=== PATIENT | male | born 1965 | race Caucasian/White ===

== ENCOUNTER 2025-10-11 11:56 | Outpatient (AMB) | payer MEDICARE, SELFPAY ==
--- NOTE | 2025-10-11 12:08 | A.OFFVIS_ITS ---
Intake Visit Reasons: parkinsons DZ HPI Comments Details: The patient is a 60 year old male presenting for evaluation of his long-standing Parkinson's disease and more recent onset of dementia, with the goal of establishing local neurologic care. He is a right-handed individual who was d iagnosed with Parkinson's disease around age 28, with the initial symptom being a right-hand tremor. Approximately 15 years ago, he underwent deep brain stimulation (DBS) surgery due to severe tremor that was not well-controlled with medication. The DBS was initially very effective. He has bilateral batteries; one was replaced about two years ago and does not require regular charging, while the other requires charging with a Medtronic system every few days to prevent severe immobility. Cognitive issues became apparent approximately 2-3 years ago with the onset of significant visual and auditory hallucinations. While living independently, he had delusions of people in his condo and bugs on the floor, which led to him moving in with his family a year and a half ago. He has been treated with levamisole, Nuplazid, and clozapine, which has provided some improvement, though he still consistently experiences visual hallucinations. Additional symptoms include a history of kicking and shouting during sleep, excessive daytime sleepiness, and occasional problems with bladder control. His family reports his personality remains calm, but confusion is a prominent and ongoing issue. His neurologic care, including DBS management, has been at [place], but the family is seeking a local provider in [place] due to the difficulty of travel. Review of Systems Narrative Constitutional:? Complain of tiredness and fatigue HEENT:?No headache, vision changes, hearing loss, nasal congestion, sore throat. Cardiovascular:?No chest pain, palpitations, orthopnea, PND, or leg swelling. Respiratory:?No cough, shortness of breath, wheezing, or hemoptysis. Gastrointestinal:?No nausea, vomiting, abdominal pain, diarrhea, or constipation. Genitourinary:? Complain of mild incontinence. Musculoskeletal:?No joint pain, stiffness, weakness, or muscle aches. Neurological:? Complain of difficulty walking, confusion, memory problems, tremor. Psychiatric:? Complain of depression and hallucinations. Endocrine:?No heat/cold intolerance, polydipsia, polyuria, or hair/skin changes. Hematologic/Lymphatic:?No easy bruising, bleeding, or lymphadenopathy. Integumentary (Skin):?No rash, lesions, itching, or color changes. Allergic/Immunologic:?No seasonal allergies, hives, or recurrent infections. Sleep: Complain of difficulty sleeping. Physical Exam Neuro Other: Mental Status: He is alert and awake with normal spontaneity of speech fluency comprehension and somewhat flat affect. Cranial Nerves: CN II: Visual metcalf full to confrontation, visual acuity intact. CN III, IV, : Pupils equal, round, reactive to light and accommodation. Extraocular movements are normal. CN V: Facial sensation is normal. CN VII: Facial movements symmetrical. CN VIII: Hearing intact to bedside conversation is normal. CN IX, X: Palate elevates symmetrically. CN XI: Shoulder shrug and head turn symmetrical. CN XII: Tongue midline without atrophy or fasciculations. Motor: Bulk and tone normal in all extremities. No significant muscle weakness in arms and legs. No drift. Reflexes: Deep tendon reflexes 2+ and symmetric. Plantar response down-going bilaterally. Coordination: [id number] is okay. Gait and Station: Slow and cautious with decreased arm swing. Posture is slightly stooped. Extrapyramidal: Decreased facial expression blinking. Moderate generalized bradykinesia. Mild fine tremor in outstretched hands. No significant resting tremor. Speech: Soft speech with no significant tremor Assessment & Plan Assessment & Plan (1) Parkinson disease: Code(s): G20.A1 - Parkinson's disease without dyskinesia, without mention of fluctuations Category: Medical Qualifiers: Dyskinesia presence: without dyskinesia Fluctuating manifestations: without fluctuating manifestations Qualified Code(s): G20.A1 - Parkinson's disease without dyskinesia, without mention of fluctuations (2) Dementia with Lewy bodies: Code(s): G31.83 - Neurocognitive disorder with Lewy bodies; F02.80 - Dementia in other diseases classified elsewhere, unspecified severity, without behavioral disturbance, psychotic disturbance, mood disturbance, and anxiety Category: Medical Qualifiers: Dementia severity: moderate Dementia behavioral or psychological symptom: without behavioral, psychotic, or mood disturbance or anxiety Qualified Code(s): G31.83 - Neurocognitive disorder with Lewy bodies; F02.B0 - Dementia in other diseases classified elsewhere, moderate, without behavioral disturbance, psychotic disturbance, mood disturbance, and anxiety Plan Impression: 1. Longstanding diagnosis of Parkinson's disease that initially presented when he was about 28 years old with hand tremor, status post deep brain stimulation leads placement with good response. 2. Recent, during last 2-4 years, onset of cognitive difficulties, visual and auditory hallucinations, and REM sleep behavior disorder type of symptomatology suggestive of dementia with Lewy body disease Recommendations: As he was trying to transfer his care from [place] to this area, and because of complex nature of his overall situation, I have recommended to his sister who was also his healthcare proxy, that he should see Dr. Allen in [place]. I did discuss possibility of testing including skin biopsy for synuclein to confirmed the type of dementia. Otherwise treatment is symptomatic no specific treatment is available for this kind of dementia. Coding Level of Care Code New Pt Level 5 (52431) Diagnoses Parkinson's disease without dyskinesia or fluctuating manifestations G20.A1 Dyskinesia presence: without dyskinesia Fluctuating manifestations: without fluctuating manifestations Moderate Lewy body dementia without behavioral disturbance, psychotic disturbance, mood disturbance, or anxiety G31.83; F02.B0 Dementia severity: moderate Dementia behavioral or psychological symptom: without behavioral, psychotic, or mood disturbance or anxiety Time Spent (min) 60
--- OUTSIDE RECORDS SUMMARY | 2025-10-11 15:48 | XMS_ITS | Encounter Summary ---
Author Organization [facility] Address [address] [place] [address] Care Team Providers Care Guitar Repairer Name Role Phone Jewell Richter Primary Care Provider Encounter Details Date Type Department Care Team (Late st Contact Info) Description 12/06/2021 myChart Message [facility] [address] [place] [address] Tracey Pascal NP [address] [place], [place] [id number] Medication List Social History Tobacco Use Types Packs/Day Years Used Date Smoking Tobacco: Never Smokeless Tobacco: Never Comments:: Alcohol Use Standard Drinks/Week Comments No 0 (1 standard drink = 0.6 oz pur e alcohol) Sex and Gender Information Value Date Recorded Sex Assigned at Male 11/22/2022 9:15 AM EST Legal Sex Male 10:00 AM EDT Gender Identity Male 11/22/2022 9:15 AM EST Sexual Orientation Straight 11/22/2022 9: 15 AM EST documented as of this encounter Plan of Treatment Not on file documented as of this encounter Visit Diagnoses Not on filedocumented in this encounter Care Teams Guitar Repairer Relationship Specialty Start Date End Date Jewell Richter [address] [place] [address] PCP - General 09/17/21 documented as of this encounter
--- OUTSIDE RECORDS SUMMARY | 2025-10-11 15:48 | XMS_ITS | Clinical Summary ---
Author Organization [facility] Address [address] [place] [address] Phone Care Team Providers Care Chief Media Officer Name Role Phone Jewell Richter NP Primary Care Provider [phone] Medications bisacodyL (DULCOLAX) 5 mg EC tablet Take 2 tablets by mouth right before beginning bowel prep. See instructions provided by the office 2 tablet 4 Active polyethylene glycol (Golytely) 236-22.74-6.74 -5.86 gram solution Take 4L by mouth once for one dose. May substitue any PEG. Starting at 6PM the night before your procedure drink 1 8oz glasses at your own pace until you complete half of the gallon. Finish 2nd half of the gallon 5 hours before your procedure. 4000 mL 4 Active Medical History Medical History Date Comments Pseudocholinesterase deficiency Social History Tobacco Use Types Packs/Day Years Used Date Smoking Tobacco: Never Assessed Sex and Gender Information Value Date Recorded Sex Assigned at Not on file Legal Sex Male 9:07 PM EST Gender Identity Not on file Sexual Orientation Not on file Plan of Treatment Health Maintenance Due Date Last Done Comments Colorectal Cancer Screening: Colonoscopy 1964 DTaP,Tdap,and Td Vaccines (1 - Tdap) 1983 Pneumococcal Vaccine: 50+ Ye ars (1 of 1 - PCV) 2014 Zoster Vaccines (1 of 2) 2014 Cholesterol Screening (Lipid Panel) 11/21/2023 HIV Screening 11/21/2023 Hepatitis C Screening 11/21/2023 Medicare Annual Wellness Visit 11/21/2023 Social Influencers of Health Screening 11/21/2023 Depression Screening 10/27/2024 COVID-19 Vaccine (1 - 2024-2 6 season) 2025 Influenza Vaccine (#1) 2025 RSV Immunization Adult Patie nts (1 - 1-dose 75+ series) 2039 HIB Vaccines Aged Out No longer eligi ble based on patient's age to complete this topic HPV Vaccines Aged Out No longer eligi ble based on patient's age to complete this topic Hepatitis A Vaccines Aged Out No long er eligible based on patient's age to complete this topic Hepatitis B Vaccines Aged Out No long er eligible based on patient's age to complete this topic IPV Vaccines Aged Out No longer eligi ble based on patient's age to complete this topic MMR Vaccines Aged Out No longer eligi ble based on patient's age to complete this topic Meningococcal ACWY Vaccine Aged Out N o longer eligible based on patient's age to complete this topic Meningococcal B Vaccine Aged Out No l onger eligible based on patient's age to complete this topic RSV Immunization Patients Un florence 20 months Aged Out No longer eligible b ased on patient's age to complete this topic Varicella Vaccines Aged Out No longer eligible based on patient's age to complete this topic Insurance Care Teams Chief Media Officer Relationship Specialty Start Date End Date Jewell Richter NP [address] [place] [address] PCP - General Nurse Practitioner 09/13/24
--- OUTSIDE RECORDS SUMMARY | 2025-10-11 15:49 | XMS_ITS | Encounter Summary ---
Author Organization [facility] Address [address] [place] [phone] Care Team Providers Care Redye Hand Name Role Phone Jonathon Hurley MD Primary Care Provider [phone] Encounter Details Date Type Department Care Team (Late st Contact Info) Description 04/04/2015 Scanned Document [facility] [address] [facility] [place] [address] Panda Pink MD PhD [address] [place] [phone] Social History Tobacco Use Types Packs/Day Years Used Date Smoking Tobacco: Never Alcohol Use Standard Drinks/Week Comments Not Asked 0 (1 standard drink = 0.6 oz pur e alcohol) Sex and Gender Information Value Date Recorded Sex Assigned at Not on file Legal Sex Male 4:49 PM EDT Gender Identity Not on file Sexual Orientation Not on file documented as of this encounter Plan of Treatment Not on file documented as of this encounter Visit Diagnoses Not on filedocumented in this encounter Care Teams Redye Hand Relationship Specialty Start Date End Date Jonathon Hurley MD [address] [phone] PCP - General Internal Medicine 02/28/15 07/18/22 Jewell Richter NP Primary Care Provider Advanced Practice Nursing 07/19/22 documented as of this encounter
--- OUTSIDE RECORDS SUMMARY | 2025-10-11 15:49 | XMS_ITS | Encounter Summary ---
Author Organization [facility] Address [address] [place] [phone] Care Team Providers Care Nut And Bolt Assembler Name Role Phone Jonathon Hurley MD Primary Care Provider [phone] Encounter Details Date Type Department Care Team (Late st Contact Info) Description 02/21/2015 Scanned Document [facility] [address] [facility] [address] [facility] [place] [address] Padna Pink MD PhD [address] [place] [phone] Social History Tobacco Use Types Packs/Day Years [...] on filedocumented in this encounter Care Teams Nut And Bolt Assembler Relationship Specialty Start Date End Date Jonathon Hurley MD [address] [facility] [address] [address] PCP - General Internal Medicine 02/28/15 07/18/22 Jewell Richter NP Primary Care Provider Advanced Practice Nursing 07/19/22 documented as of this encounter
--- OUTSIDE RECORDS SUMMARY | 2025-10-11 15:49 | XMS_ITS | Clinical Summary ---
Author Organization [address] Address [address] [place] [phone] Phone Care Team Providers Care Application Internship Name Role Phone Unavailable Primary Care Provider Unavailabl e Allergies Active Allergy Reactions Criticality Noted Date Comments Entacapone 02/21/2015 Carbidopa-Levodopa 05/28/2017 Psychotic Disorder Medications CARBIDOPA/LEVODOPA (RYTARY ORAL) Take by mouth. 23.75/95 mg Take 4 capsules tid Active ergocalciferol (VITAMIN D2) 50,000 unit capsule Take by mouth once a week. Patient takes Vitamin 2000 IU Dailh Active multivitamin capsule Take 1 capsule by mouth daily. Active fish oil-omega-3 fatty acids 1,000 mg capsule Take 2 g by mouth daily. Active carbidopa-levodopa (PARCOPA) 25-100 mg per disintegrating tablet Take 1 tablet by mouth.. 1 po every 3 hours x 6-7 dose per day Active zolpidem (AMBIEN) 10 mg tablet Take 10 mg by mouth nightly as needed for Sleep.. Active cephALEXin (KEFLEX) 500 MG capsule Take 1 capsule (500 mg total) by mouth 2 (two) times daily.. 6 capsule 7 Active senna (SENOKOT) 8.6 mg tablet Take 1 tablet by mouth Every evening before dinner.. 30 tablet 7 Active Active Problems Problem Noted Date Diagnosed Date Parkinson's disease 03/02/2015 Social History Tobacco Use Types Packs/Day Years Used Date Smoking Tobacco: Never Smokeless Tobacco: Never Alcohol Use Standard Drinks/Week Comments No 0 (1 standard drink = 0.6 oz pur e alcohol) Sex and Gender Information Value Date Recorded Sex Assigned at Not on file Legal Sex Male 4:49 PM EDT Gender Identity Not on file Sexual Orientation Not on file Last Filed Vital Signs Vital Sign Reading Time Taken Comments Blood Pressure 128/82 06/25/2017 3:03 PM EDT Pulse 77 06/25/2017 3:03 PM EDT Temperature 36.4 C (97.6 F) 06/25/2017 3:03 PM EDT Respiratory Rate 23 06/10/2017 10:00 AM EDT Oxygen Saturation 96% 06/25/2017 3:03 PM EDT Inhaled Oxygen Concentration - - Weight 77.1 kg (170 lb) 06/25/2017 3:03 PM EDT Height 172.7 cm (5' 8 ) 06/25/2017 3:03 PM EDT Body Mass Index 25.85 06/25/2017 3:03 PM EDT Plan of Treatment Health Maintenance Due Date Last Done Comments HIV screening 1977 Hepatitis C screening 1982 Tetanus adult (Td q 10,TDAP once) 1984 Lipid disorder screening 2004 Colon cancer screening, Colonoscopy 2009 Pneumococcal Vaccine (50+ years) (1 of 1 - PCV) 2014 Shingles vaccine (Shingrix) (1 of 2 - Shingrix (RZV) 2 Dose Standard Series) 2014 Diabetes screening 06/04/2020 06/04/2017, 03/01/2015 Influenza vaccine 05/27/2025 Covid-19 vaccine series (1 - 2024- season) 2025 RSV Immunization (1 - 1-dose 75+ series) 2039 Meningococcal B Vaccine Aged Out No l onger eligible based on patient's age to complete this topic Meningococcal Vaccine Aged Out No jordy keturah eligible based on patient's age to complete this topic Medical Devices Implanted Type Area Journeyman Sheet Metal Worker Device Identifier Shelf Expiration Date Model / Serial / Lot Deep Brain Stimulator Deep Brain Stimulator Chest Description:bilateral Antenna 36in Neurostimulator - [id number] Implanted:Qty: 1 on 03/21/2015 by Panda Pink MD PhD at [address] [employer] 10/26/2019 [id number] / / [id number] Battery Acativa Rechrg [id number] - [id number] Implanted:06/10/20 17 by Panda Pink MD PhD at [address] (Quantity not on file) Other-implant Right: Chest MEDTRON[employer] (MEDT-ZZZZ) 11/09/2017 [id number] / [id number] 1H / [id number] 1H Battery Acativa Rechrg 05036 - [id number] Implanted:Qty: 1 on 03/21/2015 by Panda Pink MD PhD at [address] Vascular Left: Chest [employer]TRON[employer] (MEDT-ZZZZ) 12/24/2015 34010 / [id number] 7H / [id number] 7H 1x4 Medtronic Pocket Adaptor Kit Implanted:Qty: 1 on 03/21/2015 by Panda Pink MD PhD at [address] Left: Chest 10/23/2017 53313 / / [id number] Explanted Type Area Journeyman Sheet Metal Worker Device Identifier Shelf Expiration Date Model / Serial [place] [id number] - [id number] Implanted:03/21/20 15 by Panda Pink MD PhD at [address] (Quantity not on file) Explanted:Qty: 1 on 06/10/2017 by Panda Pink MD PhD at [address] Neuro Right: Chest [employer] 12/24/2015 14707 / [id number] / [id number] Procedures Procedure Name Priority Date/Time Associated Diagnosis Comments COMPREHENSIVE METABOLIC PANEL Routine 06/04/2017 3:23 PM EDT Parkinson's disease (HC Code) from Last 3 Months or Most Recently Relevant to Health Maintenance Results * (ABNORMAL) Comprehensive metabolic panel (06/04/2017 3:23 PM EDT) Sodium 142 135 - 145 mmol/L 06/04/2017 4:47 PM EDT [facility] Potassium 4.8 3.3 - 5.0 mmol/L 06/04/2017 4:47 PM EDT [facility] Chloride 103 96 - 106 mmol/L 06/04/2017 4:47 PM EDT [facility] CO2 28 22 - 30 mmol/L 06/04/2017 4:47 PM EDT [facility] Anion Gap 11 >7-<17 06/04/2017 4:47 PM EDT [facility] Glucose 93 70 - 100 mg/dL 06/04/2017 4:47 PM EDT [facility] BUN 21(H) 8 - 18 mg/dL 06/04/2017 4:47 PM EDT [facility] Creatinine 0.95 0.50 - 1.20 mg/dL 06/04/2017 4:47 PM EDT [facility] Calcium 9.5 8.8 - 10.2 mg/dL 06/04/2017 4:47 PM EDT [facility] BUN/Creatinine Ratio 22.1(H) 10.0 - 20.0 06/04/2017 4:47 PM EDT [facility] Total Protein 7.2 6.0 - 8.3 g/dL 06/04/2017 4:47 PM EDT [facility] Albumin 4.1 3.5 - 5.0 g/dL 06/04/2017 4:47 PM EDT [facility] Total Bilirubin 0.4 <1.20 mg/dL 06/04/2017 4:47 PM EDT [facility] Alkaline Phosphatase 65 30 - 130 U/L 06/04/2017 4:47 PM EDT [facility] Alanine Aminotransferase (ALT) 5 0 - 34 U/L 06/04/2017 4:47 PM EDT [facility] Aspartate Aminotransferase (AST) 22 0 - 34 U/L 06/04/2017 4:47 PM EDT [facility] Globulin 3.1 2.3 - 3.5 g/dL 06/04/2017 4:47 PM EDT [facility] A/G Ratio 1.3 1.0 - 2.2 06/04/2017 4:47 PM EDT [facility] AST/ALT Ratio 4.4 0.3 - 4.9 06/04/2017 4:47 PM EDT [facility] eGFR (Afr Amer) >60 >60 mL/min/1. 73m2 06/04/2017 4:47 PM EDT [facility] Comment: Values under 60mL/min/1.73m2 may indicate CKD if noted for more than 3 months. eGFR is only valid if creatinine is at steady state. eGFR (NON -Belarusian) >60 >60 mL/min/1. 73m2 06/04/2017 4:47 PM EDT [facility] Comment: Values under 60mL/min/1.73m2 may indicate CKD if noted for more than 3 months. eGFR is only valid if creatinine is at steady state. Blood specimen (specimen) Venipuncture / Unknown 06/04/2017 3:23 PM EDT 06/04/2017 3:32 PM EDT Panda Pink MD PhD LAB BLOOD ORDERABLES Fi nal Result [facility] [address] [place] [address] from Last 3 Months or Most Recently Relevant to Health Maintenance Insurance BCBS BS Member Subscriber Plan / Payer (Ef fective 2014-Present) Name:Jonathon Browne Relation to Subscriber:Self Name:Jonathon Browne Payer ID:[id number] (NAIC) Type:Not on file Address: [place] [id number] BS Care Teams Application Internship Relationship Specialty Start Date End Date Jewell Richter NP Primary Care Provider Advanced Practice Nursing 07/19/22
--- OUTSIDE RECORDS SUMMARY | 2025-10-11 15:49 | XMS_ITS | Encounter Summary ---
Author Organization [facility] Address [address] [place] [phone] Care Team Providers Care Burning Machine Operator Name Role Phone Jonathon Hurley MD Primary Care Provider [phone] Encounter Details Date Type Department Care Team (Late st Contact Info) Description 02/21/2015 Scanned Document [facility] [address] [facility] [address] [facility] [place] [address] Panda Pink MD PhD [address] [place] [address] [phone] Social History Tobacco Use Types Packs/Day Years [...] on filedocumented in this encounter Care Teams Burning Machine Operator Relationship Specialty Start Date End Date [facility] Hurley MD [facility] [address] [phone] PCP - General Internal Medicine 02/28/15 07/18/22 Jewell Richter NP Primary Care Provider Advanced Practice Nursing 07/19/22 documented as of this encounter
--- OUTSIDE RECORDS SUMMARY | 2025-10-11 15:49 | XMS_ITS | Encounter Summary ---
Author Organization [facility] Address [address] [place] [phone] Care Team Providers Care Customer Experience Associate Name Role Phone Jonathon Hurley MD Primary Care Provider [phone] Encounter Details Date Type Department Care Team (Late st Contact Info) Description 03/02/2015 Scanned Document [facility] [address] [facility] [address] [facility] [place] [address] Panda Pink MD PhD [address] [place] [phone] Social History Tobacco Use Types Packs/Day Years [...] on filedocumented in this encounter Care Teams Customer Experience Associate Relationship Specialty Start Date End Date Jonathon Hurley MD [address] [phone] PCP - General Internal Medicine 02/28/15 07/18/22 Jewell Richter NP Primary Care Provider Advanced Practice Nursing 07/19/22 documented as of this encounter
--- OUTSIDE RECORDS SUMMARY | 2025-10-11 15:49 | XMS_ITS | Encounter Summary ---
Author Organization [facility] Address [address] [place] [phone] Care Team Providers Care Counter Pocket Sewer Name Role Phone Jonathon Hurley MD Primary Care Provider [phone] Encounter Details Date Type Department Care Team (Late st Contact Info) Description 06/04/2017 Scanned Document [facility] [address] [facility] [place] [address] Panda Pink MD PhD [address] [place] [address] [phone] Social History Tobacco Use Types Packs/Day Years [...] on filedocumented in this encounter Care Teams Counter Pocket Sewer Relationship Specialty Start Date End Date Jonathon Hurley MD [address] [phone] PCP - General Internal Medicine 02/28/15 07/18/22 Jewell Richter NP Primary Care Provider Advanced Practice Nursing 07/19/22 documented as of this encounter
--- OUTSIDE RECORDS SUMMARY | 2025-10-11 15:49 | XMS_ITS | Encounter Summary ---
Author Organization [facility] and [facility] Address [address] [place] [phone] Care Team Providers Care Assembler Wire Group Name Role Phone Jonathon Hurley MD Primary Care Provider [phone] Encounter Details Date Type Department Care Team (Late st Contact Info) Description 04/14/2017 Scanned Document [facility] [address] [facility] [address] Panda Pink MD PhD [address] [place] [phone] Social History Tobacco Use Types Packs/Day Years [...] on filedocumented in this encounter Care Teams Assembler Wire Group Relationship Specialty Start Date End Date Jonathon Hurley MD [address] [phone] PCP - General Internal Medicine 02/28/15 07/18/22 Jewell Richter NP Primary Care Provider Advanced Practice Nursing 07/19/22 documented as of this encounter
--- OUTSIDE RECORDS SUMMARY | 2025-10-11 15:49 | XMS_ITS | Encounter Summary ---
Author Organization [facility] and [facility] Address [address] [place] [phone] Care Team Providers Care Painter Plate Name Role Phone Jonathon Hurley MD Primary Care Provider [phone] Encounter Details Date Type Department Care Team (Late st Contact Info) Description 03/27/2015 Scanned Document [facility] 800 [facility] 800 [facility] [place] [address] Panda Pink MD PhD [address] [place] [phone] Social History Tobacco Use Types Packs/Day Years [...] on filedocumented in this encounter Care Teams Painter Plate Relationship Specialty Start Date End Date Jonathon Hurley MD [address] [phone] PCP - General Internal Medicine 02/28/15 07/18/22 Jewell Richter NP Primary Care Provider Advanced Practice Nursing 07/19/22 documented as of this encounter
--- OUTSIDE RECORDS SUMMARY | 2025-10-11 15:49 | XMS_ITS | Clinical Summary ---
Author Organization [facility] Address [address] [place] [phone] Phone Care Team Providers Care Working Second Hand Name Role Phone Jewell Richter NP Primary Care Provid er Social History Tobacco Use Types Packs/Day Years Used Date Smoking Tobacco: Never Assessed Education Answer Date Recorded Are you interested in more education? Not on josué e 02/21/2023 Are you concerned about learning? Not on file 02/21/2023 No 02/21/2023 No 02/21/2023 Digital Access Answer Date Recorded No 03/22/2023 No 03/22/2023 No 03/22/2023 Reliable internet access at home? Not on file 03/22/2023 Device with a working camera? Not on file Sex and Gender Information Value Date Recorded Sex Assigned at Not on file Legal Sex Male 10:26 AM EDT Gender Identity Not on file Sexual Orientation Not on file Plan of Treatment Health Maintenance Due Date Last Done Comments Adult Td,Tdap Booster 1964 LIPID PANEL 1964 DEPRESSION SCREENING 1976 SMOKING Hx and SMOKELESS TOBACCO SCREENING 1977 HEPATITIS C SCREENING 1982 HIV ONE-TIME SCREENING (18-6 5 YEARS) 1982 COLOGUARD 2009 COLONOSCOPY 2009 COLORECTAL CANCER SCREENING 2009 FIT TEST 2009 FOBT 2009 SIGMOIDOSCOPY 2009 VIRTUAL COLONOSCOPY 2009 PNEUMOCOCCAL VACCINES (50+ years) (1 of 1 - PCV) 2014 ZOSTER VACCINES (1 of 2) 2014 INFLUENZA VACCINE (#1) 2025 COVID-19 VACCINE (3 - 2024-2 6 season) 2025 03/13/2021, 02/20/2021 RSV VACCINE (1 - 1-dose 75+ series) 2039 HEPATITIS A VACCINES Aged Out No long er eligible based on patient's age to complete this topic HIB VACCINES Aged Out No longer eligi ble based on patient's age to complete this topic MENINGOCOCCAL VACCINES (ACWY) Aged Out No longer eligible based on patient's age to complete this topic MENINGOCOCCAL VACCINES (B) Aged Out N o longer eligible based on patient's age to complete this topic Medical Devices Not on file Insurance MEDICARE REPLACEMENT MEDICARE REPLACEMENT PPO AARP MEDICARE REPLACEMENT MEDICARE REPLACEMENT MEDIC[place] [address] [place] [address] MEDICARE REPLACEMENT Care Teams Working Second Hand Relationship Specialty Start Date End Date Jewell Richter NP [address] [place] [phone] PCP - General Nurse Practitioner 10/30/23 Additional Source Comments The information contained in this document represents components of the legal health record. It is not the complete legal health record.[facility]
--- OUTSIDE RECORDS SUMMARY | 2025-10-11 15:49 | XMS_ITS | Encounter Summary ---
Author Organization [facility] and [facility] Address [address] [place] [phone] Care Team Providers Care Cognos Consultant Name Role Phone Jonathon Hurley MD Primary Care Provider + [phone] Encounter Details Date Type Department Care Team (Latest Contact Info) Description 06/04/2017 Transcribed Orders [facility] [address] [place] [address] Panda Pink MD PhD 800 [place] [phone] Parkinson's disease (HC Code) (Primary Dx) Social History Tobacco Use Types Packs/Day Years [...] as of this encounter Plan of Treatment Scheduled Orders Name Type Priority Associated Diagnoses Orde r Schedule EKG ECG Routine Parkinson's disease (HC Code) Expected: 06/04/2017, Expires: 06/04/2018 documented as of this encounter Visit Diagnoses Diagnosis Parkinson's disease (HC CODE)- Primary Paralysis agitans documented in this encounter Care Teams Cognos Consultant Relationship Specialty Start Date End Date Jontahon Hurley MD [address] [phone] PCP - General Internal Medicine 02/28/15 07/18/22 Jewell Richter NP Primary Care Provider Advanced Practice Nursing 07/19/22 documented as of this encounter
--- OUTSIDE RECORDS SUMMARY | 2025-10-11 15:49 | XMS_ITS | Encounter Summary ---
Author Organization [facility] and [facility] Address [address] [place] [phone] Care Team Providers Care Investment Sales Assistant Name Role Phone Jonathon Hurley MD Primary Care Provider [phone] Encounter Details Date Type Department Care Team (Late st Contact Info) Description 05/27/2017 Scanned Document [facility] 800 [facility] 800 [facility] [place] [address] Panda Pink MD PhD [address] [place] [phone] Social History Tobacco Use Types Packs/Day Years [...] on filedocumented in this encounter Care Teams Investment Sales Assistant Relationship Specialty Start Date End Date Jonathon Hurley MD [address] [phone] PCP - General Internal Medicine 02/28/15 07/18/22 Jewell Richter NP Primary Care Provider Advanced Practice Nursing 07/19/22 documented as of this encounter
--- OUTSIDE RECORDS SUMMARY | 2025-10-11 15:49 | XMS_ITS | Encounter Summary ---
Author Organization [facility] Address [address] [place] [phone] Phone Care Team Providers Care Roving Department Supervisor Name Role Phone Jewell Richter NP Primary Care Provid er Reason for Referral * Speech Therapy (Routine) - Closed Specialty Diagnoses / Procedures Referred By Antoinette monte Referred To Contact Speech Pathology Diagnoses Encounter for rehabilitation Tracey Pascal NP Phone: tel: fax: [facility] [address] [place] [address] Phone: tel: Referral ID Status Reason Start Date Expiration Date Visits Re quested Visits Authorized [id number] Closed 09/01/2019 10/26/[phone] Encounter Details Date Type Department Care Team (Latest Contact Info) Description 09/01/2019 Transcribe Orders [facility] [address] [place] [address] Tracey Pascal NP [address] [place] [phone] Encounter for rehabilitation (Primary Dx) Social History Tobacco Use Types Packs/Day Years Used Date Smoking Tobacco: Never Assessed Sex and Gender Information Value Date Recorded Sex Assigned at Not on file Legal Sex Male 10:26 AM EDT Gender Identity Not on file Sexual Orientation Not on file documented as of this encounter Plan of Treatment Not on file documented as of this encounter Procedures Procedure Name Priority Date/Time Associated Diagnosis Comments AMB REFERRAL TO [facility] SPEECH AND LANGUAGE PATHOLOGY Routine 10/03/2019 7:21 PM EST Encounter for rehabilitation documented in this encounter Results * Ambulatory referral to [facility] Speech Language Pathology (10/03/2019 7:21 PM EST) Tracey Pascal NP [facility]B [facility] REFERRALS Final Result documented in this encounter Visit Diagnoses Diagnosis Encounter for rehabilitation- Primary documented in this encounter Care Teams Roving Department Supervisor Relationship Specialty Start Date End Date Jewell Richter NP [address] [place] [address] PCP - General Nurse Practitioner 10/30/23 documented as of this encounter Additional Source Comments The information contained in this document represents components of the legal health record. It is not the complete legal health record.[facility]
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
--- OUTSIDE RECORDS SUMMARY | 2025-10-11 15:49 | XMS_ITS | Encounter Summary ---
Author Organization [facility] and [facility] Address [address] [place] [id number] Care Team Providers Care Marketing Officer Name Role Phone Jonathon Hurley MD Primary Care Provider [phone] Encounter Details Date Type Department Care Team (Late st Contact Info) Description 06/10/2017 Scanned Document [facility] [address] [facility] [address] [facility] [place] [address] Panda Pink MD PhD [address] [place] [phone] Social History Tobacco Use Types Packs/Day Years [...] on filedocumented in this encounter Care Teams Marketing Officer Relationship Specialty Start Date End Date Jonathon Hurley MD [address] [phone] PCP - General Internal Medicine 02/28/15 07/18/22 Jewell Richter NP Primary Care Provider Advanced Practice Nursing 07/19/22 documented as of this encounter
--- OUTSIDE RECORDS SUMMARY | 2025-10-11 15:49 | XMS_ITS | Encounter Summary ---
Author Organization [facility] Address [address] [place] [phone] Care Team Providers Care Crane Operator Name Role Phone Jonathon Hurley MD Primary Care Provider [phone] Encounter Details Date Type Department Care Team (Late st Contact Info) Description 03/10/2015 Scanned Document [facility] [address] [facility] [address] [facility] [place] [address] Panda Pink MD PhD [address] [place] [phone] Social History Tobacco Use Types Packs/Day Years [...] on filedocumented in this encounter Care Teams Crane Operator Relationship Specialty Start Date End Date Jonathon Hurley MD [address] [phone] PCP - General Internal Medicine 02/28/15 07/18/22 Jewell Richter NP Primary Care Provider Advanced Practice Nursing 07/19/22 documented as of this encounter
== END 2025-10-11 12:34 | disposition home or self-care (01) ==
LOC: HO.HSM 11:57
PROVIDERS: Visit Provider Psychiatry & Neurology Neurology
DX: G20.A1 Parkinson's disease without dyskinesia, without mention of fluctuations (principal); G31.83 Neurocognitive disorder with Lewy bodies; F02.B0 Dementia in other diseases classified elsewhere, moderate, without behavioral disturbance, psychotic disturbance, mood disturbance, and anxiety
CPT/HCPCS: 99205

== ENCOUNTER → 2025-10-11 11:56 | Outpatient (BNVA) | payer MEDICARE, SELFPAY | PROVIDERS: Visit Provider Psychiatry & Neurology Neurology | DX: G20.A1 Parkinson's disease without dyskinesia, without mention of fluctuations (principal); G31.83 Neurocognitive disorder with Lewy bodies | CPT/HCPCS: 99202 ==